=== PATIENT | female | born 1930 | race Two or more races ===

== ENCOUNTER 2016-11-05 12:38 | Emergency (ER) | payer OTHER, BC ==
[2016-11-05 13:05] VITALS: RESP 16
[2016-11-05] MEDS ORDERED: ACETAMINOPHEN 500 MG TAB PO ONE (13:05)
--- NOTE | 2016-11-05 13:13 | UCPHY ---
[id number] fever. Source: Patient Exam Limitations: No limitations - Personal History Current Tetanus Diphtheria and Acellular Pertussis (TDAP): Yes Tetanus Vaccine Date: within 10 yrs - Medical/Surgical History Hx Asthma: No Hx Chronic Respiratory Disease: No Hx Diabetes: No Hx Cardiac Disease: No Hx Renal Disease: No Hx Cirrhosis: No Hx Alcoholism: No Hx HIV/AIDS: No Hx Splenectomy or Spleen Trauma: No Other PMH: HTN, high cholesterol, SILVANA, hypothyroidism, R lung nodule, thyroidectomy, appendectomy, c section, oopherectomy, cholecystectomy, stents in LLE, tonsilectomy, addenoidectomy - Family History Significant Family History: No pertinent family hx - Social History Smoking Status: Never smoked Time Seen by Provider: 11/05/16 13:12 HPI/ROS: HPI: 86-year-old female presents to urgent care with chief concern cough and choking sensation. That onset suddenly this morning while she was at home. Coughing so much she felt like she could not breathe. The symptoms started initially 2 days ago with a nonproductive cough, runny nose. Reports subjective fever. Denies dizziness, shortness of breath, chest pain, abdominal pain, nausea, vomiting, diarrhea. She is eating and drinking without difficulty. ROS:10 point review of systems is negative other than as stated in HPI (Paradise Aguero) - Social History Additional Social History: Lives with her daughter (Paradise Aguero) - Physical Exam Exam: Vital signs: Temp 38.2, heart rate 86, respiratory rate 16, blood pressure 158 /63, 94% on room air General: Awake, alert, calm, cooperative. No acute distress. Head: Normalocephalic. Atraumatic. EENT: PERRLA. EOMI. No pallor or injection. Anicteric. No nystagmus. No injection. TMs intact bilaterally with normal landmarks. Mild nasal congestion, mildly erythematous nasal turbinates.. Oropharynx without redness, exudates, or lesions. Uvula midline. Neck: Supple, nontender. No lymphadenopathy. No JVD. No carotid bruit. Full range of motion. No meningismus. Respiratory: Breathing unlabored. Breath sounds equal bilaterally and clear to auscultation. No adventitious sounds. CV: Chest nontender, atraumatic. Heart rate regular. No murmur, distal pulses 2+ bilaterally. Brisk cap refill all extremities. GI: Abdomen soft, nontender. Bowel sounds normoactive and positive x4 quadrants. : No suprapubic tenderness. No CVA or flank tenderness. Neuro: Alert. Oriented x 3. Speech clear. Nonfocal cranial nerves throughout. Sensation intact all extremities. Skin: Skin warm, dry, intact. No rashes, abrasions, or lacerations. Skin turgor normal. Extremities: Full range of motion in all 4 extremities. Strength 5+ all extremities. (LaciParadise K) Constitutional: Initial Vital Signs Temperature (C) 38.2 C 11/05/16 12:57 Heart Rate 86 11/05/16 12:57 Respiratory Rate 16 11/05/16 12:57 Blood Pressure 158/63 H 11/05/16 12:57 O2 Sat (%) 94 11/05/16 12:57 O2 Delivery Mode Room Air Allergies/Adverse Reactions: No Known Allergies Allergy (Verified 11/05/16 12:57) Home Medications: Medication Instructions Recorded Albuterol Hfa Anes Only [Proair 2 puffs IH QID PRN #1 mdi 11/05/16 Hfa Anes Only] Aspirin 11/05/16 Benzonatate [Tessalon Pearles (RX)] 100 mg PO Q8 PRN #15 cap 11/05/16 Centrum Silver Chewable Tablet 11/05/16 Clopidogrel 11/05/16 Coq10 11/05/16 Fiber Gummies 11/05/16 Fish Oil 11/05/16 Levothyroxine 11/05/16 Lisinopril 11/05/16 Oseltamivir Phosphate [Tamiflu 75 75 mg PO BID #9 cap 11/05/16 mg (*)] Pantoprazole Sodium 11/05/16 Probiotic 11/05/16 Simvastatin 11/05/16 Turmeric 11/05/16 VITAMIN E 11/05/16 Vitamin C 11/05/16 Vitamin D3 11/05/16 Medical Decision Making ED Course/Re-evaluation: 86-year-old nontoxic female presents to urgent care with a temp of 38.2 and oxygen saturation 94%. Influenza swab is negative. She has no nausea and vomiting, is tolerating p.o.. Chest x-ray shows no evidence of pneumonia, urinalysis is pending. Labs pending. 1 L normal saline and 1000 mg Tylenol given. 1449: White count 15205 with 82% neutrophils. Lactic acid 1.2. Chemistry unremarkable. Urinalysis is negative for evidence of urinary tract infection. Chest x-ray shows peribronchial thickening consistent with bronchitis, viral process. No evidence of pneumonia. This is consistent with her clear to auscultation lungs. Influenza is negative. After 1 L normal saline her vitals are stable at 130 4/97, heart rate 75, 94% on room air, temp 37.5. She is given 10 mg IV Decadron. She is instructed in use of inhaler. I will have her follow up with primary care tomorrow for recheck without fail. While her flu swab is negative, her symptoms are consistent with flu or flu-like illness. I have to that and also prescribe Tamiflu. I have recommended that she be observed several times during the night. To this end, her daughter will awaken her for recheck. They understand for which symptoms to return here or go to emergency department (Paradise Aguero) Urgent Care [employer]MI[employer]CHNICIAN supervision Physician documentation: The patient was evaluated and managed by the nurse practitioner. My co- signature indicates that I have reviewed this chart and I agree with the findings and plan of care as documented. I am the secondary supervising physician. (Clay Auqino) Differential Diagnosis: Differential diagnosis includes but is not limited to influenza, pneumonia, urinary tract infection, sepsis (Paradise Aguero) - Data Points Laboratory Results: Laboratory Results 11/05/16 13:45 11/05/16 13:45 Medications Given: Discontinued Medications Acetaminophen (Tylenol) 1,000 mg PO EDNOW ONE Stop: 11/05/16 13:06 Last Admin: 11/05/16 13:12 Dose: 1,000 mg Dexamethasone (Decadron Injection) 10 mg IVP EDNOW ONE Stop: 11/05/16 14:43 Last Admin: 11/05/16 14:50 Dose: 10 mg Sodium Chloride (Ns) 1,000 mls @ 0 mls/hr IV ONCE ONE PRN Reason: Wide Open Stop: 11/05/16 13:17 Last Admin: 11/05/16 13:54 Dose: 1,000 mls Oseltamivir Phosphate (Tamiflu) 75 mg PO EDNOW ONE Stop: 11/05/16 14:52 Last Admin: 11/05/16 14:57 Dose: 75 mg Departure - Departure Disposition: Home, Routine, Self-Care Clinical Impression: Viral upper respiratory infection, Flu-like illness Condition: Good Instructions: Upper Respiratory Infection (ED) Additional Instructions: Plan: 400 mg ibuprofen every 6 hours with food for fever or body aches 1000 mg of Tylenol every 8 hours as needed for fever or body aches Please drink plenty of fluids Use your albuterol inhaler 2 puffs every 4-6 hours for shortness of breath, wheezing. Use Tessalon Perles for cough as directed May also take NyQuil as directed for help sleeping with cough Please follow-up with your primary care tomorrow without fail for recheck--When you call to schedule appointment, please let the office know you are an "ER follow up" appointment" Referrals: Danish Pineda MD [Primary Care Provider] - As per Instructions Prescriptions: Albuterol Hfa Anes Only [Proair Hfa Anes Only] 2 puffs IH QID PRN #1 mdi PRN Reason: Short Of Breath/Dyspnea Oseltamivir Phosphate [Tamiflu 75 mg (*)] 75 mg PO BID #9 cap Benzonatate [Tessalon Pearles (RX)] 100 mg PO Q8 PRN #15 cap PRN Reason: Severe cough - PQRS PQRS Measurement: 134: Depression screening and followup, PRIME MD-PHQ2 (12 years and older) Over the last 2 weeks, how often have you been bothered by any of the following problems? 1. Feeling down, depressed, or hopeless? 2. Little interest or pleasure in doing things? Patient answered no to both 1 and 2 130: Documentation of medications. Reviewed all patient medications, doses, route and frequency. 226: Do you smoke? No 47: 65 and older: Advanced care planning. . Patient has advanced directive. 51: 18 years old and older with diagnosis of COPD, spirometry performance. Patient has no history of COPD 52: 18 years old and older with COPD and symptoms of COPD or FEV1<60% no history of COPD (Paradise Aguero)
[2016-11-05] MEDS ORDERED: NS 1,000 ML IV ONE (13:16)
--- NOTE | 2016-11-05 13:50 | CPEKG ---
Heart Rate: 74 RR Interval: 811 P-R Interval: 164 QRSD Interval: 82 QT Interval: 372 QTC Interval: 413 P A[place]ell: 64 QRS Axtell: 2 T Wave A[place]ell: 33 EKG Severity - NORMAL ECG - EKG Impression: SINUS RHYTHM Electronically Signed By: Clay Aquino 05-Nov-2016 14:24:29
[2016-11-05 14:05] LABS: % IMMATURE GRANULYOCYTES 0.4 % (0.0-1.1); ABSOLUTE IMMATURE GRANULOCYTES 0.04 10^3/uL (0.00-0.10); ADD DIFF? NO; ADD MORPH? NO; ADD SCAN? NO; ATYPICAL LYMPHOCYTE FLAG 10 (0-99); FRAGMENT RBC FLAG 0 (0-99); HEMATOCRIT 36.6 % (38.0-47.0); HEMOGLOBIN 12.2 g/dL (12.6-16.3); LEFT SHIFT FLG 0 (0-99); LIPEMIA HEMOLYSIS FLAG 80 (0-99); MEAN CELL HEMOGLOBIN 29.6 pg (27.9-34.1); MEAN CELL HEMOGLOBIN CONCENTR. 33.3 g/dL (32.4-36.7); MEAN CELL VOLUME 88.8 fL (81.5-99.8); MEAN PLATELET VOLUME 10.9 fL (8.7-11.7); PLATELET CLUMPS FLAG 10 (0-99); PLATELET COUNT 270 10^3/uL (150-400); RED BLOOD CELL COUNT 4.12 10^6/uL (4.18-5.33); RED CELL DISTRIBUTION WIDTH 14.7 % (11.5-15.2)
[2016-11-05 14:09] LABS: COLOR YELLOW; LEUKOCYTE ESTERASE,URINE NEGATIVE (NEGATIVE); NITRITE,URINE NEGATIVE (NEGATIVE); PH,URINE 5.5 (5.0-7.5)
[2016-11-05 14:15] LABS: APTT 26.7 SEC (23.0-38.0); INR 0.95 (0.83-1.16); PROTIME(PATIENT) 12.5 SEC (12.0-15.0)
[2016-11-05 14:18] LABS: BILIRUBIN,TOTAL 0.8 mg/dL (0.1-1.4); CALCIUM 9.3 mg/dL (8.5-10.4); POTASSIUM 4.4 mEq/L (3.5-5.2)
--- NOTE | 2016-11-05 14:21 | DX ---
PA and Lateral Chest X-Ray 1256 hours History: Cough and congestion. Findings: Heart size and pulmonary vasculature are normal. There is stable chronic atelectasis or f ibrosis right middle lobe. There is peribronchial cuffing seen in the perihilar region and prominence of perihilar interstitial markings. There are no peripheral infiltrates or effusions. Osseous struct ures are intact. Impression: Prominence of perihilar interstitial markings and peribronchial cuffing. Findings are non specific but can be seen with bronchitis, reactive airway disease, or viral process.
[2016-11-05 14:22] LABS: RBC,URINE 0-1 /hpf (0-3); WBC,URINE NONE SEEN /hpf (0-3)
[2016-11-05] MEDS ORDERED: DEXAMETHASONE 10 MG/ML VIAL IVP ONE (14:42)
[2016-11-05] MEDS ORDERED: OSELTAMIVIR PHOSPHATE 75 MG CAP PO ONE (14:51)
[2016-11-05 15:07] VITALS: BP 127/59; PULSE 76; TEMP 99.2; O2SAT 95
== END 2016-11-05 15:07 | disposition home or self-care (01) ==
LOC: CED 12:38
DX: J06.9 Acute upper respiratory infection, unspecified (principal)
CPT/HCPCS: 71020; 93005; 96361; 96374; G0463; 80048-PO; 81003-PO; 81015-PO; 82247-PO; 83605-PO; 85025-PO; 85610-PO; 85730-PO; 87400-PO

== ENCOUNTER → 2017-11-15 | Outpatient (CLI) | payer OTHER, BC | LOC: CIMAGING 14:00 | PROVIDERS: ATTEND Internal Medicine | DX: R05 Cough (principal); R09.89 Other specified symptoms and signs involving the circulatory and respiratory systems; I51.7 Cardiomegaly; M51.34 Other intervertebral disc degeneration, thoracic region | CPT/HCPCS: 71046-PO ==